=== PATIENT | male | born 1945 | race Caucasian/White ===

== ENCOUNTER 2020-03-22 19:18 | Emergency (ER) | payer OTHER ==
[2020-03-22] MEDS ORDERED: ASPIRIN (CHEWABLE) 81 MG TAB PO ONE (19:34)
--- NOTE | 2020-03-22 19:37 | ED.PDOC ---
History of Present Illness - General Chief Complaint: Chest Pain/HI Stated Complaint: chest discomfort, short of breath Time Seen by Provider: 03/22/20 19:26 Source: patient, family Exam Limitations: no limitations - History of Present Illness Initial Comments: Patient is a 74-year-old male with past medical history of heart murmur and hypertension who presents the ED for chest heaviness. States he has had allergies and sinus problems for the past week and he mowed the yard with a riding lawnmower today and felt more congested afterwards. He was using a saline rinse for his nose about 90 minutes prior to arrival and developed a mild heavy feeling in left chest. He denies nausea, shortness of breath or fever. Denies any previous heart attack or stents. His buggy ladle tender is Dr. Clifford. Allergies/Adverse Reactions: Allergies NO KNOWN ALLERGY Allergy (Verified 03/22/20 20:08) Review of Systems - Review of Systems Constitutional: Denies: chills, fever, weakness EENTM: States: nose congestion. Denies: throat pain Respiratory: Denies: cough, short of breath Cardiology: States: chest pain. Denies: palpitations, syncope Musculoskeletal: Denies: back pain Skin: States: no symptoms reported All other Systems: Reviewed and Negative Family Medical History - Family History Father Family History: Unknown Physical Exam - Physical Exam General Appearance: Alert, Comfortable, No apparent distress, Other - Well appearing Eyes, Ears, Nose, Throat Exam: pharynx normal Neck: full range of motion, supple Respiratory: chest non-tender, lungs clear, normal breath sounds, no respiratory distress Cardiovascular/Chest: regular rate, rhythm, systolic murmur Gastrointestinal/Abdominal: non tender, soft, no pulsatile mass Extremity: normal range of motion, non-tender, no calf tenderness Neurologic: no motor/sensory deficits, alert, normal mood/affect Skin Exam: normal color, warm/dry Progress - Progress Progress: 03/22/20 19:39 Patient reports sensation of mild left chest heaviness about an hour and a half prior to arrival. He denies any chest pain just states it feels sore. EKG is reassuring. We will plan to get serial troponins in ED to rule out acute coronary syndrome and chest x-ray to evaluate for bronchitis or pneumonia. 03/22/20 20:08 D/W pt and spouse initial results. Pain has resolved. He states after he took Flonase earlier that his symptoms began to improve. He agrees with repeat troponin in ED. 03/22/20 21:44 D/W pateint repeat troponin unchanged. CXR and VS reassuring. Pt denies CP or SOB at this time. States he thinks this was due to his sinus pressure/congestion and allergies after mowing today. He will continue Shila and Flonase and f/u with his PCP in 1-2 days for recheck. SRP given. - Results/Orders Results/Orders: EKG- NSR, rate 98, nml intervals, nonspecific ST abnormality CHEST XRAY EXAM: XR Chest, 1 View CLINICAL HISTORY: chest pain TECHNIQUE: Frontal view of the chest. COMPARISON: No relevant prior studies available. FINDINGS: Lungs: Shallow inspiration with mild basilar vascular crowding noted. No consolidation. Pleural space: No pneumothorax or pleural effusion. Heart: Normal cardiac size and configuration. Mediastinum: No abnormality noted. Bones/joints: No osseous destruction or sclerosis noted. IMPRESSION: Shallow inspiration with mild basilar vascular crowding noted. No consolidation. 03/22/20 19:34 IV:Start .ONCE 03/22/20 19:45 EKG .ONCE Laboratory Results - last 24 hr 03/22/20 03/22/20 03/22/20 19:27 19:27 19:27 WBC 8.0 RBC 5.23 Hgb 16.9 Hct 46.9 MCV 89.7 MCH 32.3 H MCHC 36.1 RDW 12.9 Plt Count 216 MPV 7.7 Absolute Neuts (auto) 4.60 Absolute Lymphs (auto) 2.40 Absolute Monos (auto) 0.70 Absolute Eos (auto) 0.10 Absolute Basos (auto) 0.10 Neutrophils % 58.1 Lymphocytes % 30.4 Monocytes % 9.3 H Eosinophils % 1.4 Basophils % 0.8 Sodium 137 Potassium 3.1 L Chloride 100 L Carbon Dioxide 25 Anion Gap 15.1 BUN 19 H Creatinine 0.79 BUN/Creatinine Ratio 24.1 H Random Glucose 143 H Serum Osmolality 278.6 Calcium 9.5 Total Bilirubin 0.8 AST 21 ALT 25 Alkaline Phosphatase 64 Creatine Kinase CK-MB (CK-2) CK-MB (CK-2) % Troponin I 0.02 B-Natriuretic Peptide < 15.0 Serum Total Protein 8.1 Albumin 4.9 Globulin 3.2 Albumin/Globulin Ratio 1.5 03/22/20 21:14 WBC RBC Hgb Hct MCV MCH MCHC RDW Plt Count MPV Absolute Neuts (auto) Absolute Lymphs (auto) Absolute Monos (auto) Absolute Eos (auto) Absolute Basos (auto) Neutrophils % Lymphocytes % Monocytes % Eosinophils % Basophils % Sodium Potassium Chloride Carbon Dioxide Anion Gap BUN Creatinine BUN/Creatinine Ratio Random Glucose Serum Osmolality Calcium Total Bilirubin AST ALT Alkaline Phosphatase Creatine Kinase 181 H CK-MB (CK-2) 5.8 H* CK-MB (CK-2) % 3.20 Troponin I 0.02 B-Natriuretic Peptide Serum Total Protein Albumin Globulin Albumin/Globulin Ratio Departure - Departure Clinical Impression: Atypical chest pain, Sinus congestion Time of Disposition: 21:46 Disposition: Discharge to Home or Self Care Condition: Good Departure Forms: ED Discharge - Pt. Copy, Patient Portal Self Enrollment Instructions: DI for Chest Pain, Chest Pain (DC) Diet: resume usual diet Activity: increase activity as tolerated
--- NOTE | 2020-03-22 20:16 | RAD ---
EXAM: XR Chest, 1 View CLINICAL HISTORY: chest pain TECHNIQUE: Frontal view of the chest. COMPARISON: No relevant prior studies available. FINDINGS: Lungs: Shallow inspiration with mild basilar vascular crowding noted. No consolidation. Pleural space: No pneumothorax or pleural effusion. Heart: Normal cardiac size and configuration. Mediastinum: No abnormality noted. Bones/joints: No osseous destruction or sclerosis noted. IMPRESSION: Shallow inspiration with mild basilar vascular crowding noted. No consolidation. Electronically signed by: Denise Bergman MD 03/22/2020 8:14 PM CDT
[2020-03-22 21:52] VITALS: BP 127/78; O2SAT 95
[2020-03-22 21:53] VITALS: TEMP 97.2
== END 2020-03-22 21:53 | disposition home or self-care (01) ==
LOC: ER 19:18
DX: R07.89 Other chest pain (principal); R09.81 Nasal congestion